=== PATIENT | female | born 1955 | race Caucasian/White ===

== ENCOUNTER → 2016-11-05 | Outpatient (CLI) | payer BC, OTHER ==
[~2016-11-05] MED LIST: ADIPEX-P37.5 M1 PO; ASPIRIN325 PO; ATORVASTATIN CA40 MG PO; BACTRIM DS TAB1 EACH PO; BENAZEPRIL HCL10 MG PO; CEFDINIR300 MG PO; CIPRO500 MG PO; CLONAZEPAM 1 MG1 M1 PO; COLACE100 MG PO; COZAAR 50 MG TA50 M2 PO; COZAAR100 MG PO; CRESTOR20 MG PO; CRESTOR40 MG PO; DILAUDID 4 MG TA4 M1 PO; DULERA 100 MCG/13 GM INH; DURAGESIC1 EAC2 TRANSDERM; FENTANYL PA12 MCG/H1 TP; FENTANYL PA12 MCG/H1 TRANSDERM; FLEXERIL PO; GLIPIZIDE XL10 MG PO; GLIPIZIDE XL2.5 MG PO; GLUCOPHAGE1000 MG PO; GLUCOTROL10 MG PO; HUMALOG100 UNIT/1 SQ; IBUPROFEN 600600 M1 PO; K-DUR 20 MEQ T20 MEQ PO; LASIX 40 MG TAB40 M2 PO; LIPITOR10 MG PO; LYRICA150 MG PO; MULTIVITAMINS PO; NABUMETONE 750750 M1 PO; NEURONTIN800 MG PO; NISOLDIPINE17 MG PO; NORCO 10-325 T1 EACH PO; NOVOLOG100 UNIT/1 SQ; NOVOLOG100 UNIT/1 SUBQ; OMEPRAZOLE 20 M20 M1 PO; OMEPRAZOLE 20 M20 MG PO; OXCARBAZEPINE150 MG PO; OXYGEN MISCELL; PERCOCET 10-321 EACH PO; PERCOCET 7.5-31 EACH PO; PLETAL PO; PREDNISONE 10 M10 MG PO; PRILOSEC 20 MG20 MG PO; PROAIR HFA8.5 GM INH; PROTONIX40 M1 PO; RELAFEN750 MG PO; SLOW-MAG64 MG PO; SULAR PO; TRILEPTAL 300300 MG PO; TRILEPTAL150 MG PO; VESICARE10 M1 PO
== END ==
LOC: RAD 13:32
DX: R92.0 Mammographic microcalcification found on diagnostic imaging of breast (principal)

== ENCOUNTER → 2017-01-16 | Outpatient (CLI) | payer BC, OTHER | LOC: SLEEPLAB 12:44 | DX: G47.33 Obstructive sleep apnea (adult) (pediatric) (principal) ==

== ENCOUNTER → 2017-04-27 | Outpatient (CLI) | payer BC, OTHER | LOC: CAT 04-21 12:27 | DX: R91.8 Other nonspecific abnormal finding of lung field (principal) ==

== ENCOUNTER → 2017-05-15 | Outpatient (CLI) | payer BC, OTHER ==
[~2017-05-15] VITALS: Ht 154.9 cm; Wt 100.2 kg
[~2017-05-15] MED LIST changes: +BREO ELLIPTA 11 EACH IH; +DEMADEX20 MG PO; +DUONEB 2.5-0.5 M3 ML INH; +GABAPENTIN800 M1 PO; +LEVOTHYROXINE 0.1 MG PO; +NEURONTIN600 MG PO; +TRAMADOL 50 MG50 MG PO
[2017-05-15 12:34] VITALS: BP 115/57
== END | disposition home or self-care (01) ==
LOC: PAIN 06:55
DX: M79.661 Pain in right lower leg (principal); M79.662 Pain in left lower leg; G89.29 Other chronic pain; M79.1 Myalgia; I50.9 Heart failure, unspecified; J44.9 Chronic obstructive pulmonary disease, unspecified; E66.09 Other obesity due to excess calories; Z68.41 Body mass index [BMI] 40.0-44.9, adult; Z87.891 Personal history of nicotine dependence; Z88.8 Allergy status to other drugs, medicaments and biological substances; Z79.82 Long term (current) use of aspirin; Z79.4 Long term (current) use of insulin; Z79.899 Other long term (current) drug therapy

== ENCOUNTER 2017-07-30 13:50 | Emergency (ER) | payer BC, OTHER ==
[~2017-07-30] VITALS: Ht 160 cm; Wt 98.4 kg
--- NOTE | ~2017-07-30 | EKG ---
[address] [address] ELECTROCARDIOGRAM REPORT Name: JOLEENRAZA [id number] Admission: 07/30/17 Attend Phys: Discharge: 07/30/17 Date of : 51 Report #: [id number] THIS REPORT FOR: //name// [facility] ED Test Date: 2017-07-30 Test Time: 14:24:35 Pat Name: RAZA GOODRICH Department: Room: Gender: F Trouble Operator: [id number] : 1955 Requested By: Rose Bowles Order Number: [id number] MD: Ji Bell Measurements Intervals Ware Rate: 121 P: 25 CA: 174 QRS: 27 QRSD: 69 T: 34 QT: 336 QTc: 477 Interpretive Statements Atrial fibrillation Consider anterior infarct Compared to ECG 12/30/2016 16:45:21 Low QRS voltage now present Myocardial infarct finding now present Electronically Signed On 07-30-2017 15:52:21 CDT by Ji Bell [email or web address] <ELECTRONICALLY SIGNED> By: Ji Bell MD 07/30/17 1552 1424 1424 Ji Bell MD /SOFI
[2017-07-30 14:43] LABS: ABSOLUTE NEUTROPHILS 9.1 thou/uL (1.4-8.2); EOSINOPHILS 4.7 % (0.0-3.0); HEMATOCRIT 32.1 % (37.0-47.0); HEMOGLOBIN 10.6 gm/dL (12.0-15.0); MCH 24.9 pg (26.0-34.0); MCHC 32.9 g/dL (28.0-37.0); MCV 75.8 fL (80.0-100.0); MONOCYTES 6.5 % (1.0-8.0); PLATELET COUNT 428 thou/uL (150-400); POLYS 77.8 % (36.0-66.0); RBC 4.24 mil/uL (4.20-5.00); RDW 18.6 % (10.5-14.5); WBC 11.7 thou/uL (4.0-11.0)
[2017-07-30 14:45] LABS: MANUAL DIFF NO
[2017-07-30 14:50] LABS: ANION GAP 12 mmol/L (7-16); BUN 18 mg/dL (7-18); CALCIUM 8.9 mg/dL (8.5-10.1); CHLORIDE 101 mmol/L (98-107); CO2 25 mmol/L (21-32); GLUCOSE 72 mg/dL (74-106); SODIUM 138 mmol/L (136-145)
[2017-07-30 14:59] LABS: TROPONIN-I < 0.04 ng/mL (<0.04-0.07)
[2017-07-30 15:15] LABS: ABG SAMPLE TYPE ARTERIAL; BE(vivo) 1.6 mmol/L (-2 to +3); HCO3 26.3 mmol/L (22.0-26.0); O2(CT) 15.1 mL/dL (15.0-23.0); O2Hb 95.1 % (92.0-98.0); PO2 79.7 mmHg (80.0-100.0); pH 7.415 (7.360-7.450); sO2 95.9 % (92.0-98.0); tCO2 27.6 mmol/L (24.0-30.0)
[2017-07-30 15:16] LABS: LACTATE 4.28 mmol/L (0.5-2.0); STICK SITE R.BRACHIAL
== END 2017-07-30 15:49 | disposition home or self-care (01) ==
LOC: ER 13:50
PROVIDERS: Emergency Medicine
DX: R55 Syncope and collapse (principal); R00.0 Tachycardia, unspecified; F17.210 Nicotine dependence, cigarettes, uncomplicated; E11.9 Type 2 diabetes mellitus without complications; I10 Essential (primary) hypertension; K21.9 Gastro-esophageal reflux disease without esophagitis; E78.00 Pure hypercholesterolemia, unspecified; Z79.4 Long term (current) use of insulin; Z88.8 Allergy status to other drugs, medicaments and biological substances

== ENCOUNTER → 2017-11-26 | Outpatient (CLI) | payer BC ==
[~2017-11-26] VITALS: Ht 157.5 cm; Wt 94.3 kg
--- NOTE | ~2017-11-26 | HPC ---
[facility] [place] [address] PAIN MANAGEMENT CONSULTATION Name: JOLEENRAZA MILENA Room #: REG Latoya Ash#: [id number] Admission: 11/26/17 Attend Phys: Jaden Suarez DO Discharge: Date of : 51 Report #: [id number] THIS REPORT FOR: //name// CC: Demetrio Suarez The patient is a pleasant 62-year-old female, long treated for myofascial pain, bipedal neuropathy requiring complex medication management, specifically gabapentin 800 mg t.i.d. with occasional tramadol for breakthrough pain. We discontinued Relafen due to some increased renal functions (creatinine) at last visit. Last seen in pain clinic on 05/15/2017. In the interval since we saw her, she was admitted to the ER on 07/30/2017. 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 She ultimately was monitored and discharged from the ER within a few hours. He returns to pain clinic today noting pain is generally controlled with medication. She notes diffuse pain in neck, back and shoulders. Primary pain today is in the upper back. She rates pain at 5 on a VAS exacerbated with activity. She is using supplemental oxygen which she has for about a year. Fortunately, she did ultimately quit smoking 2 years ago. She uses a walker now for balance and to offload some weight. She notes her functional status is diminished. BMI is 38 kilograms per meter squared. Blood pressure 139/67, pulse 120, respirations 18. Alert and oriented to person, place and time, judged to be a reasonable historian. No history of osteo or rheumatoid arthritis. Has not had a fall in the last 3 months other than the syncopal event at the fraud representative's office. She is on no blood thinners, does not have hypertension. She is taking tramadol, a mild opiate. We have an opiate consent to treat contract that we reviewed and signed today. Her score is low on the risk assessment tool (2-3), functional assessment tool is 22/70. We reviewed the fact that opiate medications are being used to provide analgesia adequate to support activities of daily living, not attempting to achieve a specific pain score on the 0-10 Visual Analog Scale. The current opiate medications are providing sufficient analgesia to allow the patient to participate in activities of daily living. The patient is not exhibiting any aberrant behavior suggestive of drug diversion. The patient is not having any adverse reactions to medications. The patient is not suffering from daytime somnolence or mental acuity changes. The patient is managing opiate-induced constipation with appropriate uqbx-sxv-bqjower agents and dietary considerations. The patient was counseled on concern for caution with operating a motor vehicle while using opiate medications. A physical exam was performed and the patient's functional status was evaluated. [address] [address] PAIN MANAGEMENT CONSULTATION Name: RAZA GOODRICH MILENA Room #: REG CL Nilsa#: [id number] Admission: 11/26/17 Attend Phys: Jaden Suarez DO Discharge: Date of : 51 Report #: [id number] All patients with back pain were advised against the bed rest greater than 4 days and were advised to return to normal activities. Pain score assessment was noted and the treatment plan was reviewed with the patient. All current medications, both prescribed and OTC were reviewed and reconciled on the electronic medical record. Tobacco screening was accomplished and smoking cessation was advised when indicated. BMI was noted and diet/exercise modification was recommended for all patients following outside normal parameters. I reviewed with the patient today their responsibilities to safeguard prescription medications, reviewed their responsibility to utilize medications only as prescribed by the physician. They are to seek and receive pain medications only from 1 physician group ( [facility]). They are to use 1 pharmacy and keep the clinic informed if they change pharmacies. Their responsibilities include making followup visits in a timely fashion and to avoid abrupt discontinuation of medication usage. Their responsibilities further include bringing their medications (bottles from the pharmacy with residual pills) to the visit for possible confirmation of pill counts and the patient understands it is their responsibility to submit to random drug screens to ensure both that the medications prescribed are present, and that no other controlled substances are present. All prescriptions provided today were generated electronically. ASSESSMENT: 1. Myofascial pain with bipedal neuropathy. 2. History of comorbidity including chronic obstructive pulmonary disease and morbid obesity requiring high risk complex medication management. RECOMMENDATIONS: Continue gabapentin 800 mg t.i.d. I have taken the liberty of writing for 6 months of current medication. Continue tramadol 50 mg 1 tablet 2-3 times a day, she uses on a nondaily basis, dispensed 100 tablets with 2 refills. I will be happy to refill this with a phone call, but we will need to see her in 6 months for ongoing medication management. The patient is discharged in good and stable condition. Followup is p.r.n. <ELECTRONICALLY SIGNED> By: Jaden Suarez DO 11/27/17 0725 1556 2144 Jaden Suarez DO /nt
[2017-11-26 12:39] VITALS: BP 139/67
== END ==
LOC: PAIN 06:55
DX: M79.1 Myalgia (principal); M79.2 Neuralgia and neuritis, unspecified; J44.9 Chronic obstructive pulmonary disease, unspecified; E66.01 Morbid (severe) obesity due to excess calories; Z79.899 Other long term (current) drug therapy